=== PATIENT | female | born 1965 | race Hispanic/Latino ===

== ENCOUNTER → 2017-12-06 | Outpatient (CLI) | payer OTHER, MEDICARE | LOC: MAMMO 09:25 | PROVIDERS: ATTEND Internal Medicine | DX: Z12.31 Encounter for screening mammogram for malignant neoplasm of breast (principal) | CPT/HCPCS: 77067 ==

== ENCOUNTER 2019-10-23 06:13 | Emergency (ER) | payer OTHER, MEDICARE ==
[~2019-10-23] VITALS: Ht 167.6 cm; Wt 77.1 kg
[2019-10-23] MEDS ORDERED: ONDANSETRON HCL INJ 2MG/ML 2ML 2 MG/ML VIAL IV STA (06:15)
[2019-10-23] MEDS ORDERED: MORPHINE SULFATE INJ 4 MG/ML INJ 1ML IV STA (06:15)
--- OUTSIDE RECORDS SUMMARY | 2019-10-23 06:16 | XMS REPORT ---
Author Author [facility] Address Unknown Phone Unavailable Care Team Providers Care Field Worker Name Role Phone CED DOLL Unavailable Unavailable Shilpi FAN Unavailable Unavailable Problems This patient has no known problems. Allergies, Adverse Reactions, Alerts This patient has no known allergies or adverse reactions. Medications This patient has no known medications. Results Test Description Test Time Test Comments Text Results Atomic Results Result Comments MAMMOGRAPHY DIGITAL SCR BILAT 2017-12-06 10:54:00 [place] [address] Patient Name: MONICA MELO MR #: [id number] : 1965 Age/Sex: 52/F Req #: [id number] Adm Physician: Ordered by: CED DOLL MD Report #: [id number] Location: MAMMO Room/Bed: Procedure: MG/MAMMOGRAPHY DIGITAL SCR BILAT Exam Date: 12/06/17 Exam Time: 0940 REPORT STATUS: Signed #[id number] - [id number] #BILATERAL DIGITAL SCREENING MAMMOGRAM WITH CAD: 12/06/2017 CLINICAL: Routine screening. Comparison is made to exam dated: 10/03/2016 mammogram - [facility]. Current study contains 4 films. The tissue of both breasts is heterogeneously dense. This may lower the sensitivity of mammography. Current study was also evaluated with a Computer Aided Detection (CAD) system. There are benign calcifications in the left breast. There also is a biopsy clip in the left breast. No significant masses, calcifications, or other findings are seen in either breast. There has been no significant interval change. IMPRESSION: BENIGN There is no mammographic evidence of malignancy. A 1 year screening mammogram is recommended. The patient will be notified by letter of the results. Manuel knowles/greg:12/12/2017 10:19:16 [employer] Selector: Yaneth VAZQUEZ(R)(M), [facility] letter sent: Compared to Prior B9 Mammogram BI-RADS: 2 Benign Dictated By: MANUEL PEOPLES DO 1019 Transcribed By: GREG on 12/12/17 1019 COPY TO: CED DOLL MD CT BRAIN WO [place] [address] Patient Name: MONICA MELO MR #: [id number] : 1965 Age/Sex: 51/F Req #: [id number] Adm Physician: Ordered by: NEWTON FAN MD Report #: [id number] Location: ER Room/Bed: Procedure: [id number] CT/CT BRAIN WO Exam Date: 04/27/17 Exam Time: 1020 REPORT STATUS: Signed Examination: CT BRAIN WITHOUT CONTRAST History:Worst headache of life. Eye pain. Comparison studies:None Technique: Axial images were obtained from the skull base to the vertex. Coronal and sagittal images reconstructed from the axial data. Intravenous contrast: None Findings: Scalp: No abnormalities. Bones: No fractures, blastic or lytic lesions. Brain sulci: Appropriate for age. Ventricles: Normal in size and configuration. No hydrocephalus. Extra-axial space: No acute hemorrhage. There is a CSF equal density area in the left frontal convexity, measuring 1.1 x 2.8 x 0.9 cm (superoinferior x anteroposterior x transverse dimensions), with regional mass effect upon the left middle frontal gyrus and scalloping of the underlying left frontal calvarial inner table, consistent with an arachnoid cyst. Parenchyma: No abnormal densities. No masses, hemorrhage, or acute or chronic vascular insults. Sellar/suprasellar region: No abnormalities. Craniocervical junction: Patent foramen magnum. No Chiari one malformation. Incidental findings: None. Impression: 1. No acute intracranial abnormalities. 2. Left frontal convexity 1.1 x 2.8 x 0.9 cm arachnoid cyst. Signed by: Dr. Naomy Linder M.D. on 04/27/2017 11:06 AM Dictated By: NAOMY BENNETT MD 05 Transcribed By: MARIA E on 04/27/171105 COPY TO: NEWTON FAN MD
[2019-10-23] MEDS ORDERED: MORPHINE SULFATE INJ 4 MG/ML INJ 1ML ONE (06:25)
[2019-10-23] MEDS ORDERED: LIDOCAINE 1% 5ML-MPF INJ ONE (06:45)
[2019-10-23] MEDS ORDERED: LIDOCAINE HCL 1% LOCAL INJ 20 ML VIAL ONE (06:53)
--- NOTE | 2019-10-23 07:01 | Diagnostic Imaging Report ---
Exam: Left elbow radiographs-3 views; forearm radiographs-2 views; and hand radiographs-2 views History: Status post trauma, distal radial deformity, elbow pain. Comparison: None. Findings: Left elbow: Limited views. No evidence of acute displaced fracture or malalignment. Left forearm and hand: Limited views. There are comminuted, intra-articular fractures of the distal radius and ulna. There is impaction with displacement of fracture fragments. There is dorsal angulation. Overlying soft tissue edema. Carpal alignment is grossly maintained. Impression: Limited views. Comminuted, intra-articular fractures of the distal radius and ulna with associated impaction and dorsal angulation. Signed by: Dr. Becki Holbrook MD on 10/23/2019 6:58 AM
== END 2019-10-23 07:29 | disposition home or self-care (01) ==
LOC: ER 06:13
DX: S52.502A Unspecified fracture of the lower end of left radius, initial encounter for closed fracture (principal); S52.602A Unspecified fracture of lower end of left ulna, initial encounter for closed fracture; W10.8XXA Fall (on) (from) other stairs and steps, initial encounter; Y92.008 Other place in unspecified non-institutional (private) residence as the place of occurrence of the external cause; M32.9 Systemic lupus erythematosus, unspecified; M54.9 Dorsalgia, unspecified; G89.29 Other chronic pain
CPT/HCPCS: 73070; 73090; 73120; 99284; J2001; J2270; J2405

== ENCOUNTER → 2020-05-07 | Outpatient (CLI) | payer OTHER, MEDICARE | LOC: DX 08:48 | PROVIDERS: ATTEND Internal Medicine Rheumatology | DX: Z78.0 Asymptomatic menopausal state (principal) | CPT/HCPCS: 77080 ==

== ENCOUNTER → 2020-05-18 | Outpatient (CLI) | payer OTHER, MEDICARE ==
--- NOTE | 2020-05-18 09:20 | Diagnostic Imaging Report ---
TECHNIQUE: Computed tomography imaging of the LEFT WRIST was performed WITHOUT injected contrast. Dose modulation, iterative reconstruction, and/or weight based adjustment of the mA/kV was utilized to reduce the radiation dose to as low as reasonably achievable. HISTORY: Wrist pain, prior fracture and surgery. COMPARISON: None available. FINDINGS: Status post open reduction internal fixation for fractures of the distal radius and ulnar metaphysis. Since the initial x-ray, the alignment is improved with mild volar angulation of the radius and ulnar fractures. No osseous bridging across the fracture lines with significant bony defect involving the dorsal aspect of the radial metaphysis. Loosening around the ulnar screws. The soft tissues are unremarkable. IMPRESSION: Nonunited fractures of the distal radial and ulnar metaphysis status post open reduction internal fixation. Loosening around the ulnar screws. Signed by: Dr. Diomedes Pulido M.D. on 05/18/2020 9:17 AM
--- NOTE | 2020-05-18 09:57 | Diagnostic Imaging Report ---
Lumbar spine, 4 views complete INDICATION: ^[id number] ^[id number] ^ACUTE MAXILLARY SINUSITIS Comparison: None available. Discussion: There are 5 lumbar-type nonrib-bearing vertebral bodies identified. There is straightening of the normal lumbar lordosis. Negative for anterolisthesis or retrolisthesis. Oblique views are negative for pars interarticularis defect. There is mild multilevel disc space narrowing, most prominent at L5-S1. Facet arthropathy is noted at L4-5 and L5-S1. Negative for significant compression deformity or displaced fracture deformity or dislocation. The SI joints are patent. Soft tissues are unremarkable. IMPRESSION: Multilevel degenerative changes of the spine, most prominent at L5-S1. No significant compression deformity. Consider cross-sectional imaging if clinically indicated. Signed by: Alf Kyle MD on 05/18/2020 9:54 AM
== END ==
LOC: CT 08:10
PROVIDERS: ATTEND Orthopaedic Surgery
DX: Z12.31 Encounter for screening mammogram for malignant neoplasm of breast (principal); S52.532G Colles' fracture of left radius, subsequent encounter for closed fracture with delayed healing; M54.5 Low back pain
CPT/HCPCS: 72110; 77067

== ENCOUNTER → 2020-06-30 | Day surgery (SDC) | payer OTHER, MEDICARE ==
[~2020-06-30] MED LIST: ALENDRONATE SOD70 MG PO; ATORVASTATIN CA10 MG PO; CEFAZOLIN SOD 1 GM/NS 50ML 100 ML IV ONE; CLONAZEPAM0.5 MG PO; DEXAMETHASONE SOD PHOS INJ 4 MG/ML VIAL ONE; HYDROMORPHONE 1MG/1ML INJ ONE; HYDROXYCHLOROQ200 MG PO; LIDOCAINE HCL 2% JELLY 5 ML TUBE ONE; LIDOCAINE HCL 2% LOCAL INJ 5 ML SDV VIAL INJ ONE; ONDANSETRON HCL INJ 2MG/ML 2ML 2 MG/ML VIAL ONE; PROPOFOL IV EMULSION 10 MG/ML 20 ML VIAL ONE; PROZAC40 MG PO; SEVOFLURANE INHAL SOLN 250 ML PEN BTL ONE; TRAZODONE HCL100 MG PO; VITAMIN D250 MCG PO
[2020-06-30 18:45] VITALS: BP 142/84
== END | disposition home or self-care (01) ==
LOC: OR 10:28
PROVIDERS: ATTEND Orthopaedic Surgery
DX: S52.502A Unspecified fracture of the lower end of left radius, initial encounter for closed fracture (principal); S52.602A Unspecified fracture of lower end of left ulna, initial encounter for closed fracture; M32.9 Systemic lupus erythematosus, unspecified; F41.9 Anxiety disorder, unspecified; X58.XXXA Exposure to other specified factors, initial encounter; Z01.810 Encounter for preprocedural cardiovascular examination; Z01.812 Encounter for preprocedural laboratory examination; Z20.828 Contact with and (suspected) exposure to other viral communicable diseases
CPT/HCPCS: 25420; 87071; 87075; 87205; 93005; C1713 ×6; C1762; J0690; J1170; U0002; J1100; J2001; J2405

== ENCOUNTER 2020-07-01 09:12 | Inpatient (IN) | payer OTHER, MEDICARE ==
[~2020-07-01] VITALS: Ht 167.6 cm; Wt 77.1 kg
[~2020-07-01 09:12] MED LIST changes: -CEFAZOLIN SOD 1 GM/NS 50ML 100 ML IV ONE; -DEXAMETHASONE SOD PHOS INJ 4 MG/ML VIAL ONE; -HYDROMORPHONE 1MG/1ML INJ ONE; -LIDOCAINE HCL 2% JELLY 5 ML TUBE ONE; -LIDOCAINE HCL 2% LOCAL INJ 5 ML SDV VIAL INJ ONE; -ONDANSETRON HCL INJ 2MG/ML 2ML 2 MG/ML VIAL ONE; -PROPOFOL IV EMULSION 10 MG/ML 20 ML VIAL ONE; -SEVOFLURANE INHAL SOLN 250 ML PEN BTL ONE
[2020-07-01] MEDS ORDERED: HYDROMORPHONE 1MG/1ML INJ IV STA (09:26)
[2020-07-01] MEDS ORDERED: ONDANSETRON HCL 4 MG ORAL DISINTEGRATING TAB PO ONE (09:30)
[2020-07-01] MEDS ORDERED: HYDROMORPHONE 1MG/1ML INJ IM STA (09:36)
[2020-07-01] MEDS ORDERED: HYDROMORPHONE 1MG/1ML INJ IV PRN (11:00)
[2020-07-01] MEDS ORDERED: ONDANSETRON HCL INJ 2MG/ML 2ML 2 MG/ML VIAL IV PRN (11:00)
[2020-07-01 11:13] LABS: BASOPHILS % 0.6 % (0.0-1.0); EOSINOPHILS % 0.3 % (0.0-6.0); HEMATOCRIT 33.9 % (34.2-44.1); HEMOGLOBIN 11.5 g/dL (12.0-16.0); LYMPHOCYTES # (AUTO) 1.6 (1.0-3.2); LYMPHOCYTES % 24.6 % (18.0-39.1); MEAN CORPUSCULAR HEMOGLOBIN 31.3 pg (28-32); MEAN CORPUSCULAR HGB CONC 33.9 g/dL (31-35); MEAN CORPUSCULAR VOLUME 92.1 fL (81-99); MONOCYTES # (AUTO) 0.8 (0.2-0.8); MONOCYTES % 13.3 % (4.4-11.3); NEUTROPHILS # (AUTO) 3.8 (2.1-6.9); NEUTROPHILS % 60.9 % (38.7-80.0); PLATELET COUNT 277 x10e3/uL (140-360); RED BLOOD COUNT 3.68 x10e6/uL (3.6-5.1); RED CELL DISTRIBUTION WIDTH 12.5 % (11.7-14.4)
[2020-07-01 11:24] LABS: INR 0.93; PARTIAL THROMBOPLASTIN TIME 24.9 seconds (23.8-35.5); PROTHROMBIN TIME 12.9 seconds (11.9-14.5)
[2020-07-01 11:30] LABS: ALANINE AMINOTRANSFERASE 20 IU/L (0-55); ALBUMIN 3.8 g/dL (3.5-5.0); ALBUMIN/GLOBULIN RATIO 1.6 (0.8-2.0); ALKALINE PHOSPHATASE 48 IU/L (40-150); ANION GAP 16.5 mmol/L (8-16); BLOOD UREA NITROGEN 7 mg/dL (7-26); BUN/CREATININE RATIO 10 (6-25); CALCIUM 8.8 mg/dL (8.4-10.2); CARBON DIOXIDE 20 mmol/L (22-29); CHLORIDE 101 mmol/L (98-107); CREATININE, SERUM 0.67 mg/dL (0.57-1.11); EST GLOMERULAR FILTRATION RATE > 60 ML/MIN (60-); GLUCOSE 90 mg/dL (74-118); POTASSIUM 3.5 mmol/L (3.5-5.1); SODIUM 134 mmol/L (136-145)
[2020-07-01 11:40] LABS: CLARITY,URINE CLEAR (CLEAR); COLOR,URINE YELLOW (YELLOW); KETONES,URINE 1+ (NEGATIVE); LEUKOCYTE ESTERASE ,URINE NEGATIVE (NEGATIVE); NITRITE,URINE NEGATIVE (NEGATIVE); PROTEIN,URINE DIPSTICK NEGATIVE (NEGATIVE); URINE UROBILINOGEN 1 mg/dL (0.2 - 1)
[2020-07-01 11:43] LABS: EPITHELIAL CELLS,URINE RARE /LPF; MUCUS,URINE FEW (RARE); RBC,URINE 0-5 /HPF (0-5); WBC,URINE (MAN) 0-5 /HPF (0-5)
[2020-07-01 11:44] LABS: AMPHETAMINES SCREEN,URINE NEGATIVE (NEGATIVE); BENZODIAZEPINES SCREEN,URINE NEGATIVE (NEGATIVE); PHENCYCLIDINE SCREEN,URINE NEGATIVE (NEGATIVE)
[2020-07-01] MEDS: SODIUM CHLORIDE 0.9% 1000ML 1,000 ML IV SCH ×2 (11:49→21:29)
[2020-07-01] MEDS ORDERED: ACETAMINOPHEN 325 MG TAB PO ONE (15:30)
[2020-07-01] MEDS ORDERED: DIAZEPAM 5 MG TAB PO PRN (15:30)
[2020-07-01] MEDS: HYDROMORPHONE 1MG/1ML INJ IV PRN ×2 (17:40→20:24)
[2020-07-01] MEDS ORDERED: HYDROMORPHONE 0.2MG/ML-SOD CHL 30ML PCA SYRINGE IV PRN (17:45)
[2020-07-01] MEDS ORDERED: NALOXONE HCL INJ 0.4 MG/ML AMP IV PRN (17:45)
[2020-07-01] MEDS ORDERED: ACETAMINOPHEN 1000 MG/100 ML IV SCH (18:00)
[2020-07-01] MEDS ORDERED: METHYLPREDNISOLONE SOD SUCC 125 MG/2ML VIAL IV ONE (18:00)
[2020-07-01 20:45] VITALS: BP 116/76
[2020-07-01] MEDS: TRAZODONE HCL 50 MG TAB PO SCH (21:29)
[2020-07-01] MEDS: GABAPENTIN 300 MG CAP PO SCH (21:30)
[2020-07-01] MEDS: ATORVASTATIN 10 MG TAB PO SCH (21:30)
[2020-07-02] VITALS (14 sets, daily range): BP systolic 91–122; BP diastolic 54–76
[2020-07-02 05:15] LABS: HEMATOCRIT 35.7 % (34.2-44.1); HEMOGLOBIN 11.1 g/dL (12.0-16.0); LYMPHOCYTES # (AUTO) 0.3 (1.0-3.2); MEAN CORPUSCULAR HGB CONC 31.1 g/dL (31-35); MEAN CORPUSCULAR VOLUME 99.7 fL (81-99); MONOCYTES # (AUTO) 0.2 (0.2-0.8); NEUTROPHILS # (AUTO) 3.3 (2.1-6.9); NEUTROPHILS % 88.5 % (38.7-80.0); PLATELET COUNT 225 x10e3/uL (140-360); RED BLOOD COUNT 3.58 x10e6/uL (3.6-5.1); RED CELL DISTRIBUTION WIDTH 12.8 % (11.7-14.4)
[2020-07-02 05:49] LABS: ALANINE AMINOTRANSFERASE 17 IU/L (0-55); ALBUMIN 3.5 g/dL (3.5-5.0); ALBUMIN/GLOBULIN RATIO 1.3 (0.8-2.0); ALKALINE PHOSPHATASE 53 IU/L (40-150); ANION GAP 15.1 mmol/L (8-16); BLOOD UREA NITROGEN 5 mg/dL (7-26); BUN/CREATININE RATIO 9 (6-25); CARBON DIOXIDE 16 mmol/L (22-29); CHLORIDE 107 mmol/L (98-107); CREATININE, SERUM 0.56 mg/dL (0.57-1.11); EST GLOMERULAR FILTRATION RATE > 60 ML/MIN (60-); GLUCOSE 114 mg/dL (74-118); POTASSIUM 4.1 mmol/L (3.5-5.1); SODIUM 134 mmol/L (136-145)
[2020-07-02] MEDS: SODIUM CHLORIDE 0.9% 1000ML 1,000 ML IV SCH ×2 (07:00→17:00)
[2020-07-02] MEDS: HYDROMORPHONE 1MG/1ML INJ IV PRN (07:56)
[2020-07-02] MEDS ORDERED: ACETAMINOPHEN 325 MG TAB PO PRN (08:30)
[2020-07-02] MEDS ORDERED: HYDRALAZINE HCL 20 MG/ML VIAL IV PRN (08:30)
[2020-07-02] MEDS: GABAPENTIN 300 MG CAP PO SCH ×3 (09:17→20:04)
[2020-07-02] MEDS: FLUOXETINE HCL 20 MG CAP PO SCH (09:17)
[2020-07-02] MEDS: CLONAZEPAM 0.5 MG TAB PO SCH ×2 (09:17→16:07)
[2020-07-02] MEDS ORDERED: OXYCODONE/ACETAMINOPHEN 5-325 1 EACH TABLET PO PRN (11:45)
[2020-07-02] MEDS: FAMOTIDINE 20 MG TAB PO SCH (16:07)
[2020-07-02] MEDS: OXYCODONE/ACETAMINOPHEN 5-325 1 EACH TABLET PO PRN ×2 (16:07→20:04)
[2020-07-02] MEDS: ATORVASTATIN 10 MG TAB PO SCH (20:04)
[2020-07-02] MEDS: TRAZODONE HCL 50 MG TAB PO SCH (20:04)
[2020-07-03] VITALS: BP 115/64
[2020-07-03 02:54] VITALS: BP 115/64
[2020-07-03 02:56] VITALS: BP 120/78
[2020-07-03] MEDS: SODIUM CHLORIDE 0.9% 1000ML 1,000 ML IV SCH (03:30)
[2020-07-03 04:00] VITALS: BP 109/54
[2020-07-03] MEDS: OXYCODONE/ACETAMINOPHEN 5-325 1 EACH TABLET PO PRN ×2 (04:04→08:16)
[2020-07-03 06:37] LABS: BASOPHILS % 0.6 % (0.0-1.0); EOSINOPHILS % 1.2 % (0.0-6.0); HEMATOCRIT 29.4 % (34.2-44.1); HEMOGLOBIN 9.6 g/dL (12.0-16.0); LYMPHOCYTES # (AUTO) 1.2 (1.0-3.2); LYMPHOCYTES % 34.9 % (18.0-39.1); MEAN CORPUSCULAR HEMOGLOBIN 31.7 pg (28-32); MEAN CORPUSCULAR HGB CONC 32.7 g/dL (31-35); MONOCYTES # (AUTO) 0.5 (0.2-0.8); MONOCYTES % 13.4 % (4.4-11.3); NEUTROPHILS # (AUTO) 1.7 (2.1-6.9); NEUTROPHILS % 49.6 % (38.7-80.0); PLATELET COUNT 215 x10e3/uL (140-360); RED BLOOD COUNT 3.03 x10e6/uL (3.6-5.1); RED CELL DISTRIBUTION WIDTH 13.1 % (11.7-14.4)
[2020-07-03 07:02] LABS: ANION GAP 8.7 mmol/L (8-16); BLOOD UREA NITROGEN 6 mg/dL (7-26); BUN/CREATININE RATIO 11 (6-25); CARBON DIOXIDE 24 mmol/L (22-29); CHLORIDE 108 mmol/L (98-107); CREATININE, SERUM 0.55 mg/dL (0.57-1.11); EST GLOMERULAR FILTRATION RATE > 60 ML/MIN (60-); GLUCOSE 90 mg/dL (74-118); POTASSIUM 3.7 mmol/L (3.5-5.1); SODIUM 137 mmol/L (136-145)
[2020-07-03 08:00] VITALS: BP 135/70
[2020-07-03] MEDS: GABAPENTIN 300 MG CAP PO SCH (08:16)
[2020-07-03] MEDS: CLONAZEPAM 0.5 MG TAB PO SCH (08:16)
[2020-07-03] MEDS: FLUOXETINE HCL 20 MG CAP PO SCH (08:16)
[2020-07-03] MEDS: FAMOTIDINE 20 MG TAB PO SCH (08:16)
== END 2020-07-03 10:10 | disposition home or self-care (01) | DRG 948 ==
LOC: ER 09:30 → ERHOLD 10:49 → MED/SURG 20:39
PROVIDERS: ADMIT Internal Medicine; ATTEND Internal Medicine
DX: G89.18 Other acute postprocedural pain (principal); N39.0 Urinary tract infection, site not specified; M32.9 Systemic lupus erythematosus, unspecified; M81.0 Age-related osteoporosis without current pathological fracture; E78.5 Hyperlipidemia, unspecified; F41.9 Anxiety disorder, unspecified; F32.9 Major depressive disorder, single episode, unspecified; G89.29 Other chronic pain; M79.7 Fibromyalgia; Z20.828 Contact with and (suspected) exposure to other viral communicable diseases
CPT/HCPCS: 36415; 80048; 80053; 80307; 81001; 85025; 85610; 85730; 87086; 96361; 99284; J1170; J2405; J2930; J7030; Q0162; U0002

== ENCOUNTER → 2021-02-11 | Day surgery (SDC) | payer OTHER, MEDICARE ==
[~2021-02-11] MED LIST changes: +ASPIRIN81 MG PO; +CEFDINIR300 MG PO; +GLUCAGON FOR INJ 1 MG VIAL ONE; +HYOSCYAMINE SULFATE 0.5 MG/ML INJ ONE; +LIDOCAINE HCL 2% LOCAL INJ 5 ML SDV VIAL INJ ONE; +PREDNISONE20 MG PO; +PROPOFOL IV EMULSION 10 MG/ML 20 ML VIAL ONE
[2021-02-11 16:05] VITALS: BP 101/70
== END | disposition home or self-care (01) ==
LOC: OR 10:57
PROVIDERS: ATTEND Internal Medicine Gastroenterology
DX: K20.90 Esophagitis, unspecified without bleeding (principal); K29.70 Gastritis, unspecified, without bleeding; D12.7 Benign neoplasm of rectosigmoid junction; D12.5 Benign neoplasm of sigmoid colon; K62.1 Rectal polyp; K64.8 Other hemorrhoids; Z86.010 Personal history of colon polyps; K59.09 Other constipation; M32.9 Systemic lupus erythematosus, unspecified; F32.9 Major depressive disorder, single episode, unspecified; F41.9 Anxiety disorder, unspecified; E78.5 Hyperlipidemia, unspecified; Z01.810 Encounter for preprocedural cardiovascular examination; Z01.812 Encounter for preprocedural laboratory examination; Z20.822 Contact with and (suspected) exposure to COVID-19
CPT/HCPCS: 43239; 43450; 45380 ×2; 93005; U0002; 45378; 45385; J1610; J1980; J2001

== ENCOUNTER 2021-11-09 20:06 | Emergency (ER) | payer OTHER, MEDICARE ==
[~2021-11-09] VITALS: Ht 167.6 cm; Wt 72.6 kg
[~2021-11-09 20:06] MED LIST changes: -GLUCAGON FOR INJ 1 MG VIAL ONE; -HYOSCYAMINE SULFATE 0.5 MG/ML INJ ONE; -LIDOCAINE HCL 2% LOCAL INJ 5 ML SDV VIAL INJ ONE; -PROPOFOL IV EMULSION 10 MG/ML 20 ML VIAL ONE
[2021-11-09] MEDS ORDERED: PREDNISONE 20 MG TAB PO STA (20:49)
[2021-11-09] MEDS ORDERED: METOCLOPRAMIDE HCL 10 MG/2ML VIAL IM STA (20:50)
[2021-11-09] MEDS ORDERED: PREDNISONE 20 MG TAB ONE (21:04)
[2021-11-09] MEDS ORDERED: METOCLOPRAMIDE HCL 10 MG/2ML VIAL ONE (21:04)
[2021-11-09] MEDS ORDERED: FIORICET 50-301 EACH PO (21:33)
[2021-11-09] MEDS ORDERED: PREDNISONE20 MG PO (21:33)
[2021-11-09 21:39] VITALS: BP 139/68
== END 2021-11-09 21:39 | disposition home or self-care (01) ==
LOC: FSED 20:50
DX: R51.9 Headache, unspecified (principal); R05.9 Cough, unspecified; M32.9 Systemic lupus erythematosus, unspecified; M54.9 Dorsalgia, unspecified; G89.29 Other chronic pain
CPT/HCPCS: 70450; 71045; 83518; 87400; 96372; 99283; J2765; J7512

== ENCOUNTER 2022-03-30 22:48 | Emergency (ER) | payer OTHER, MEDICARE ==
[~2022-03-30] VITALS: Ht 167.6 cm; Wt 72.6 kg
[~2022-03-30 22:48] MED LIST changes: +FIORICET 50-301 EACH PO
[2022-03-30] MEDS ORDERED: ONDANSETRON HCL 4 MG ORAL DISINTEGRATING TAB PO ONE (23:15)
[2022-03-30] MEDS ORDERED: HYDROCODONE/APAP 5MG-325MG TAB PO ONE (23:15)
[2022-03-30] MEDS ORDERED: HYDROCODONE/APAP 5MG-325MG TAB ONE (23:38)
[2022-03-30] MEDS ORDERED: ONDANSETRON HCL 4 MG ORAL DISINTEGRATING TAB ONE (23:38)
[2022-03-30] MEDS ORDERED: NAPROXEN250 MG PO (23:39)
[2022-03-30] MEDS ORDERED: IBUPROFEN200 MG PO (23:39)
== END 2022-03-31 00:45 | disposition home or self-care (01) ==
LOC: FSED 22:53
DX: S30.0XXA Contusion of lower back and pelvis, initial encounter (principal); W17.89XA Other fall from one level to another, initial encounter; Y92.89 Other specified places as the place of occurrence of the external cause; K59.00 Constipation, unspecified; M32.9 Systemic lupus erythematosus, unspecified
CPT/HCPCS: 72220; 99283; Q0162

== ENCOUNTER 2022-04-27 17:40 | Emergency (ER) | payer OTHER, MEDICARE ==
[~2022-04-27] VITALS: Ht 167.6 cm; Wt 81.6 kg
[~2022-04-27 17:40] MED LIST changes: +IBUPROFEN200 MG PO; +NAPROXEN250 MG PO
[2022-04-27] MEDS ORDERED: IBUPROFEN200 MG PO (18:27)
[2022-04-27] MEDS ORDERED: GABAPENTIN300 MG PO (18:27)
[2022-04-27] MEDS ORDERED: DOXYCYCLINE HY100 MG PO (18:27)
== END 2022-04-27 18:36 | disposition home or self-care (01) ==
LOC: FSED 17:47
DX: S50.861A Insect bite (nonvenomous) of right forearm, initial encounter (principal); W57.XXXA Bitten or stung by nonvenomous insect and other nonvenomous arthropods, initial encounter; Y93.H2 Activity, gardening and landscaping; Y92.89 Other specified places as the place of occurrence of the external cause; M32.9 Systemic lupus erythematosus, unspecified; M06.9 Rheumatoid arthritis, unspecified; M54.9 Dorsalgia, unspecified; G89.29 Other chronic pain
CPT/HCPCS: 99282

== ENCOUNTER → 2023-04-19 | Outpatient (REF) | payer OTHER, MEDICARE ==
[~2023-04-19] MED LIST changes: +DOXYCYCLINE HY100 MG PO; +GABAPENTIN300 MG PO
== END ==
LOC: MAMMO 10:29
PROVIDERS: ATTEND Internal Medicine
DX: Z12.31 Encounter for screening mammogram for malignant neoplasm of breast (principal)
CPT/HCPCS: 77067

== ENCOUNTER 2023-05-07 20:36 | Emergency (ER) | payer OTHER, MEDICARE ==
[~2023-05-07] VITALS: Ht 167.6 cm; Wt 68.0 kg
[2023-05-07] MEDS ORDERED: ONDANSETRON HCL INJ 2MG/ML 2ML 2 MG/ML VIAL IV STA (20:49)
[2023-05-07] MEDS ORDERED: ASPIRIN 325 MG TAB PO ONE (21:00)
[2023-05-07] MEDS ORDERED: Morphine 4mg INJECTION 4 MG/ML INJ IV ONE (21:00)
[2023-05-07] MEDS ORDERED: ONDANSETRON HCL INJ 2MG/ML 2ML 2 MG/ML VIAL ONE (21:07)
[2023-05-07] MEDS ORDERED: SODIUM CHLORIDE 0.9% 1000ML 1,000 ML ONE (21:08)
[2023-05-07] MEDS ORDERED: Morphine 4mg INJECTION 4 MG/ML INJ ONE (21:08)
[2023-05-07] MEDS ORDERED: ACETAMINOPHEN 325 MG TAB ONE (21:08)
[2023-05-07] MEDS ORDERED: ASPIRIN 325 MG TAB ONE (21:11)
[2023-05-07] MEDS ORDERED: IOPAMIDOL 370 MG/ML 100 ML INFUS..BTL INJ ONE (21:12)
[2023-05-07] MEDS ORDERED: SODIUM CHLORIDE 0.9% 1000ML 1,000 ML IV SCH (21:15)
[2023-05-07] MEDS ORDERED: GABAPENTIN300 MG PO (23:16)
[2023-05-07] MEDS ORDERED: IBUPROFEN800 MG PO (23:16)
[2023-05-07 23:35] VITALS: BP 140/65; PULSE 70; RESP 18; TEMP 98; O2SAT 100
== END 2023-05-07 23:35 | disposition home or self-care (01) ==
LOC: FSED 20:43
DX: R07.89 Other chest pain (principal); M54.6 Pain in thoracic spine; M32.9 Systemic lupus erythematosus, unspecified; G62.9 Polyneuropathy, unspecified; M06.9 Rheumatoid arthritis, unspecified; M79.7 Fibromyalgia
CPT/HCPCS: 71046; 71260; 80048; 80076; 82553; 84484; 85025; 93005; 96374; 96375; 99284; J2270; J2405; J7030; Q9967

== ENCOUNTER 2024-12-24 18:54 | Emergency (ER) | payer OTHER, MEDICARE ==
[~2024-12-24] VITALS: Ht 167.6 cm; Wt 81.6 kg
[~2024-12-24 18:54] MED LIST changes: +DICYCLOMINE HCL20 MG PO; +IBUPROFEN800 MG PO; +ONDANSETRON ODT4 MG SL; +PANTOPRAZOLE SO40 MG PO
[2024-12-24] MEDS ORDERED: ASPIRIN 81 MG CHEW TAB PO ONE (19:00)
[2024-12-24 19:24] LABS: BASOPHILS % 0.3 % (0.0-1.0); HEMATOCRIT 37.6 % (34.2-44.1); HEMOGLOBIN 12.6 g/dL (12.0-16.0); LYMPHOCYTES # (AUTO) 0.5 (1.0-3.2); LYMPHOCYTES % 7.1 % (18.0-39.1); MEAN CORPUSCULAR HEMOGLOBIN 31.1 pg (28-32); MEAN CORPUSCULAR HGB CONC 33.5 g/dL (31-35); MEAN CORPUSCULAR VOLUME 92.8 fL (81-99); MONOCYTES # (AUTO) 0.6 (0.2-0.8); MONOCYTES % 8.3 % (4.4-11.3); NEUTROPHILS # (AUTO) 6.3 (2.1-6.9); NEUTROPHILS % 83.9 % (38.7-80.0); PLATELET COUNT 258 x10e3/uL (140-360); RED BLOOD COUNT 4.05 x10e6/uL (3.6-5.1); RED CELL DISTRIBUTION WIDTH 12.6 % (11.7-14.4); WHITE BLOOD COUNT 7.45 x10e3/uL (4.8-10.8)
[2024-12-24] MEDS: SODIUM CHLORIDE 0.9% 1000ML 1,000 ML IV STA (19:25)
[2024-12-24 19:31] LABS: INR 0.84; PROTHROMBIN TIME 12.3 seconds (11.9-14.5)
[2024-12-24 19:39] LABS: ALBUMIN 3.6 g/dL (3.5-5.0); ALBUMIN/GLOBULIN RATIO 1.1 (0.8-2.0); ANION GAP 14.8 mmol/L (8-16); BILIRUBIN,TOTAL 0.5 mg/dL (0.2-1.2); CALCIUM 9.1 mg/dL (8.4-10.2); CREATININE, SERUM 0.81 mg/dL (0.57-1.11); POTASSIUM 3.8 mmol/L (3.5-5.1); TOTAL PROTEIN 6.9 g/dL (6.5-8.1)
[2024-12-24] MEDS ORDERED: SODIUM CHLORIDE 0.9% 100 ML ONE (19:42)
[2024-12-24] MEDS ORDERED: IOPAMIDOL 370 MG/ML 100 ML INFUS..BTL INJ ONE (19:42)
[2024-12-24 19:44] LABS: BILIRUBIN,URINE NEGATIVE (NEGATIVE); CLARITY,URINE CLEAR (CLEAR); COLOR,URINE YELLOW (YELLOW); GLUCOSE, URINE NEGATIVE (NEGATIVE); KETONES,URINE NEGATIVE (NEGATIVE); LEUKOCYTE ESTERASE ,URINE NEGATIVE (NEGATIVE); NITRITE,URINE NEGATIVE (NEGATIVE); PH,URINE 7 (5 - 7); PROTEIN,URINE DIPSTICK NEGATIVE (NEGATIVE); URINE UROBILINOGEN 0.2 mg/dL (0.2 - 1)
[2024-12-24 19:44] LABS: TROPONIN I 0.002 ng/mL (0-0.300)
[2024-12-24 19:58] LABS: EPITHELIAL CELLS,URINE RARE /LPF; RBC,URINE 0-5 /HPF (0-5)
[2024-12-24 20:58] VITALS: PULSE 82; RESP 16; TEMP 98.5
[2024-12-24 21:48] VITALS: BP 132/73; PULSE 83; RESP 15; TEMP 98.7; O2SAT 100
== END 2024-12-24 22:02 | disposition other institution (70) ==
LOC: ER 19:31
DX: R41.0 Disorientation, unspecified (principal); R29.810 Facial weakness; C79.31 Secondary malignant neoplasm of brain; G93.6 Cerebral edema; M32.9 Systemic lupus erythematosus, unspecified; M06.9 Rheumatoid arthritis, unspecified; G62.9 Polyneuropathy, unspecified; M79.7 Fibromyalgia; R53.1 Weakness; M54.9 Dorsalgia, unspecified; G89.29 Other chronic pain
CPT/HCPCS: 36415; 70450; 70496; 70498; 71045; 80053; 81001; 82550; 83690; 83880; 84484; 85025; 85610; 93005; 99284; J7030; J7050; Q9967

== ENCOUNTER 2025-04-18 10:04 | Emergency (ER) | payer OTHER, MEDICARE ==
[~2025-04-18] VITALS: Ht 167.6 cm; Wt 72.6 kg
[2025-04-18] MEDS ORDERED: DIATRIZOATE MEGL/DIATRIZOA SOD 30 ML BTL PO ONE (11:59)
[2025-04-18 13:13] VITALS: PULSE 65; RESP 16; TEMP 97.8; O2SAT 97
== END 2025-04-18 13:45 | disposition home or self-care (01) ==
LOC: ER 10:09
DX: Z43.1 Encounter for attention to gastrostomy (principal); M32.9 Systemic lupus erythematosus, unspecified; M06.9 Rheumatoid arthritis, unspecified; G62.9 Polyneuropathy, unspecified; M79.7 Fibromyalgia; M54.9 Dorsalgia, unspecified; G89.29 Other chronic pain; Z85.841 Personal history of malignant neoplasm of brain
CPT/HCPCS: 74018; 99284; Q9963